=== PATIENT | female | born 1970 | race Caucasian/White ===

== ENCOUNTER → 2016-08-11 | Outpatient (CLI) | payer OTHER ==
--- NOTE | 2016-08-11 10:08 | KCIC ---
PROCEDURE Brain MRI without contrast. HISTORY Weakness. Extremity numbness. TECHNIQUE Multiplanar and multi sequence magnetic resonance imaging of the brain was performed without contrast. COMPARISON None. FINDINGS There is no restricted diffusion to suggest acute or subacute infarction. There is no susceptibility effect to suggest hemorrhage. There is no mass effect or midline shift. There is no hydrocephalus. There are few scattered foci of T2/FLAIR hyperintensity within the cerebral white matter, a nonspecific finding. The orbits are unremarkable. There is mild ethmoid sinus mucosal thickening. The mastoid air cells are clear. There are normal flow voids within the cerebral vessels. There is abnormal subependymal signal along the lateral aspect the anterior right lateral ventricle on T2 weighted axial images, likely artifactual given the absence of a correlate finding on T1 weighted images or coronal T2 weighted images. IMPRESSION 1. No acute intracranial finding. 2. Scattered foci of T2/FLAIR hyperintensity within the cerebral white matter, a nonspecific finding. The lesion configuration and distribution favors chronic small vessel disease or chronic migraine headaches rather than demyelinating disease as possibly etiologies. Electronically signed by: Kinjal Boland (Aug 11, 2016 10:07:09)
== END | disposition home or self-care (01) ==
LOC: KCIC MRI 08:26
PROVIDERS: ATTEND Nurse Practitioner Family
DX: R53.1 Weakness (principal)
CPT/HCPCS: 70551